=== PATIENT | female | born 1985 | race Caucasian/White ===

== ENCOUNTER 2021-08-28 05:32 | Outpatient (CLI) | payer BC ==
[~2021-08-28] VITALS: Ht 157.5 cm; Wt 109.5 kg
[2021-08-28] MEDS ORDERED: FEXO180T84 PO (10:20)
[2021-08-28] MEDS ORDERED: RT-ALBUINH IH (10:20)
[2021-08-28] MEDS ORDERED: CHOL-34 PO (10:20)
[2021-08-28] MEDS ORDERED: VITA1TAB17 PO (10:20)
== END 2021-08-28 10:27 | disposition home or self-care (01) ==
LOC: PREOP 05:32
PROVIDERS: ATTEND Obstetrics & Gynecology
DX: Z01.818 Encounter for other preprocedural examination (principal)

== ENCOUNTER 2021-09-04 07:03 | Day surgery (SDC) | payer BC ==
[2021-09-04] VITALS (10 sets, daily range): BP systolic 108–122; BP diastolic 61–87
[~2021-09-04] VITALS: Ht 157.5 cm; Wt 109.5 kg
[~2021-09-04 07:03] MED LIST: CHOL-34 PO; FEXO180T84 PO; RT-ALBUINH IH; VITA1TAB17 PO
[2021-09-04] MEDS ORDERED: ceFAZolin 2 GM IV Premixed 50 ML IV ONE (07:15)
[2021-09-04 07:24] LABS: CLARITY,URINE SL CLOUDY; COLOR,URINE YELLOW; GLUCOSE, URINE (UA) NEGATIVE (NEGATIVE); KETONES,URINE 1+ (NEGATIVE); LEUKOCYTE ESTERASE ,URINE NEGATIVE (NEGATIVE); NITRITE,URINE NEGATIVE (NEGATIVE); PROTEIN,URINE TRACE (NEGATIVE)
[2021-09-04] MEDS ORDERED: BUPIVACAINE 0.25% 30 ML (SENSORCAINE) VIAL ONE (07:26)
[2021-09-04 07:35] LABS: BACTERIA,URINE MODERATE /HPF; BILIRUBIN,URINE 1+ (NEGATIVE); RBC,URINE RARE /HPF
[2021-09-04] MEDS ORDERED: SCOPOLAMINE 1.5 MG (TRANSDERM-SCOP) PATCH ONE (07:40)
[2021-09-04] MEDS ORDERED: ONDANSETRON 4 MG/2 ML (SDV) Z0FRAN ONE ×3 (07:40→10:20)
[2021-09-04] MEDS ORDERED: FAMOTIDINE 20MG/2ML IV (PEPCID) ONE (07:40)
[2021-09-04] MEDS ORDERED: NEOSTIGMINE 3 MG/3 ML VIAL ONE (07:43)
[2021-09-04] MEDS ORDERED: ROCURONIUM 50 MG/5 ML (ZEMURON) VIAL IV ONE (07:43)
[2021-09-04] MEDS ORDERED: MIDAZOLAM 2 MG/2 ML (VERSED) VIAL ONE (07:43)
[2021-09-04] MEDS ORDERED: LIDOCAINE PF 2% 5 ML (XYLOCAINE) VIAL ONE (07:43)
[2021-09-04] MEDS ORDERED: fentaNYL INJ 100 MCG/2 ML AMP ONE (07:43)
[2021-09-04] MEDS ORDERED: GLYCOPYRROLATE 0.2 MG/ML (ROBINUL) 2 ML VIAL ONE (07:43)
[2021-09-04] MEDS ORDERED: proPOfol 200 MG/20 ML (DIPRIVAN) VIAL IV ONE (07:43)
--- NOTE | 2021-09-04 07:44 | Progress Note-Pre Operative ---
Pre-Operative Progress Note H&P Reviewed The H&P was reviewed, patient examined and no changes noted. Date Seen by Provider: Sep 04, 2021 Time Seen by Provider: 07:30 Date H&P Reviewed: Sep 04, 2021 Time H&P Reviewed: 07:30 Pre-Operative Diagnosis: cervical dysplasia TIKI PARKER DO Sep 04, 2021 07:44
[2021-09-04] MEDS ORDERED: ONDANSETRON 4 MG/2 ML (SDV) Z0FRAN IV ONE (07:45)
[2021-09-04] MEDS ORDERED: FAMOTIDINE 20MG/2ML IV (PEPCID) IV ONE (07:45)
[2021-09-04] MEDS ORDERED: SCOPOLAMINE 1.5 MG (TRANSDERM-SCOP) PATCH TOP ONE (07:45)
[2021-09-04] MEDS: LACTATED RINGERS 1,000 ML IV PRN ×2 (07:56→08:55)
[2021-09-04 08:01] LABS: BASOPHILS % (AUTO) 1 % (0-10); EOSINOPHILS # (AUTO) 0.1 10^3/uL (0.0-0.3); EOSINOPHILS % (AUTO) 1 % (0-10); HEMATOCRIT 44 % (35-52); HEMOGLOBIN 14.4 g/dL (11.5-16.0); LYMPHOCYTES % (AUTO) 25 % (12-44); MEAN CORPUSCULAR HEMOGLOBIN 28 pg (25-34); MEAN CORPUSCULAR HGB CONC 33 g/dL (32-36); MEAN CORPUSCULAR VOLUME 85 fL (80-99); MEAN PLATELET VOLUME 9.2 fL (9.0-12.2); MONOCYTES # (AUTO) 0.7 10^3/uL (0.0-1.0); MONOCYTES % (AUTO) 9 % (0-12); NEUTROPHILS # (AUTO) 5.1 10^3/uL (1.8-7.8); NEUTROPHILS % (AUTO) 64 % (42-75); PLATELET COUNT 313 10^3/uL (130-400); WHITE BLOOD COUNT 7.9 10^3/uL (4.3-11.0)
[2021-09-04] MEDS ORDERED: PNV1TABL47 PO (08:19)
[2021-09-04] MEDS ORDERED: FLUT9.9S NS (08:19)
[2021-09-04] MEDS ORDERED: PHENYLEPHRINE 100 MCG/ML 10 ML (ANESTHESIA) SYR ONE (09:19)
[2021-09-04] MEDS ORDERED: SEVOFLURANE (ULTANE) 15 ML INHAL SOLN ONE (10:07)
--- NOTE | 2021-09-04 10:12 | Operative Report ---
Operative Report Date of Procedure/Surgery Sep 04, 2021 Surgeon (s) TIKI PARKER DO Service Sprinkler Helper (s): NA Post-Operative Diagnosis cervical dysplasia paratubal adhesions Procedure Performed RaTH, bilateral salpingectomy, lysis of adhesions Description of Procedure Anesthesia Type: General Estimated blood loss (mL): minimal Specimen(s) collected/removed uterus, tubes and ovaries Description of the Procedure After informed consent was obtained, patient was taken into the operating room where general anesthetic was found to be adequate. She was prepped and draped in the usual sterile fashion in the dorsal lithotomy position. A Casillas catheter was placed. A speculum was placed in the vagina. The cervix was visualized and the anterior lip was grasped with a sharp toothed tenaculum. The uterus was sounded to a depth was approximately 8 centimeters. I placed the Belem device (8 cm) and a 3.0 cm collar was advanced over the cervix. I inserted the Belem without difficulty, inflating the balloon and securing it around the fornix of the cervix. The collar was then secured with sutures at 12 o'clock. Attention was then turned to the patient's abdomen. The skin was injected with 0.1% lidocaine with epinephrine. A supraumbilical incision was made about 8 mm in length. A Veress needle was inserted and I confirmed intraabdominal placement with a drop in pressure and the saline drop test. The opening pressure was 6 mmHg. I then insufflated the abdomen to a maximum of 15 mmHg with warmed CO2 gas. I placed an additional 8 mm trocar in the left abdomen lateral to the umbilicus approximately 15 cm lateral. The second and third robotic port was placed about 12 cm lateral to the right and left of the umbilical placement. 0.1% lidocaine with epinephrine was injected prior to placement of all trocars. These were 8 mm trocars. These were placed under direct visualization of the laparoscope. When all placements were confirmed, the patient was placed in steep Trendelenburg allowing adequate visualization. The robot was brought in for docking. The docking was accomplished without difficulty. It was determined that the procedure could be done robotically. I then took over the command of the robot utilizing the synchroseal and monopolar jose. I visualized the round ligaments bilaterally and grasped them and cauterized with bipolar cautery and then cut with my jose. There were adhesions of the left tube and ovary and the left side wall and these were taken down with the jose before I could visualize the tube adequately enough to perform the salpingectomy. At this point, I then did bilateral salpingectomy. I incised the mesosalpinx with the jose. I then grasped the uterine ovarian ligaments bilaterally with the synchroseal and then excised with the monopolar jose. I then moved my dissection to the posterior leaves of the broad ligament. I dissected the posterior leaves of the broad ligament off the uterine arteries skeletonizing them bilaterally. I then took a second clamp with the synchroseal and with the jose, transected the vessels away from the lateral aspect to the cervical stroma. I dissected the anterior peritoneum off the lower uterine segment. I continually pushed the bladder back and I took excessively great care and I was eventually able to dissect the vesicouterine peritoneum off the lower uterine segment. I then dissected in a V fashion towards the midline between the uterosacral ligaments. This allowed me to skeletonize the uterine vessels bilaterally. The balloon on the BELEM was insufflated. This allowed me to see the BELEM circumferentially. I then performed a colpotomy anteriorly and then amputate with cervix away from the vaginal fornix. I then continued the colpotomy circumferentially. Once this was performed, the general office assistant removed the uterus through the vagina. The general office assistant then left a sponge in the vagina to maintain the pneumoperitoneum. . I then began closure of the vaginal cuff. I closed the apices of the vaginal cuff with 2-0 Vicryl V lock sutures with a colposuspension through the uterosac ral ligaments. This suspended the apices of the vaginal cuff. I extended this to the midline from both sides and overlapped the V lock sutures in the midline. Excellent closure is noted and hemostasis is achieved. All the needles were removed from the patient's abdomen. Now, the robotic instruments were removed and the robot was docked back to laparoscopy. The pelvis was irrigated. There was no active bleeding noted. Bilateral ureters were seen the entire time during the surgery and were peris talsing. There was no excessive bleeding noted. The trocars were removed under direct visualization. The laparoscopic sites were visualized and found to be hemostatic. The skin incisions were closed with 4-0 Monocryl in a subcuticular fashion and then with Skin Affix. Op sites were placed over the incision sites. The instruments were removed from the vagina and I noted there were no abrasions. Sponge, lap, needle and instrument counts correct times two. Patient was awakened and taken to recovery in a stable condition Findings of the Procedure slightly enlarged, boggy uterus tiny submucosal fibroids adhesions of ovary to tube on left and tube to sidewall Allergies and Home Medications Allergies Coded Allergies: acetaminophen (Verified Allergy, Unknown, Anaphylaxis, 08/28/21) aspirin (Verified Allergy, Unknown, Anaphylaxis, 08/28/21) bupropion (Verified Allergy, Unknown, "paranoid", 08/28/21) caffeine (Verified Allergy, Unknown, Anaphylaxis, 08/28/21) Patient Home Medication List Home Medication List Reviewed: Yes Acetaminophen (Acetaminophen) 500 Mg Tablet, 500 MG PO Q8H Prescribed by: TIKI PARKER on 09/04/21 1024 Cholecalciferol (Vitamin D3) (Vitamin D3) 25 Mcg Tablet, 25 MCG PO DAILY, (Re ported) Entered as Reported by: SHAE VALENTIN on 08/28/21 1020 Last Action: Last Taken Edited Fexofenadine HCl (Orquidea Allergy) 180 Mg Tablet, 180 MG PO DAILY, (Reported) Entered as Reported by: SHAE VALENTIN on 08/28/21 1020 Last Action: Last Taken Edited Fluticasone Propionate (Flonase Allergy Relief) 9.9 Ml [place].susp, 1 SPRAY NS BID, (Reported) Entered as Reported by: IVONNE PAYAN on 09/04/21818 Last Action: Last Taken Edited Ibuprofen (Ibu) 600 Mg Tablet, 600 MG PO Q6HR Prescribed by: TIKI PARKER on 09/04/21 1024 Ondansetron (Ondansetron Odt) 4 Mg Tab.rapdis, 4 MG PO Q6H PRN for NAUSEA/VOMITING Prescribed by: TIKI PARKER on 09/04/21 1024 Oxycodone Hcl (Oxyir Tablet) 5 Mg Tab, 5 MG PO Q6H PRN for PAIN-SEE DOSE INSTRUCTIONS Prescribed by: JANAE URENA on 09/04/21 1642 Pnv with Ca,No.74/Iron/FA ( Low Iron Tablet) 1 Each Tablet, 1 EACH PO DAILY, (Reported) Entered as Reported by: IVONNE PAYAN on 09/04/21818 Last Action: Last Taken Edited Vitamin B Complex (Vitamin B Complex) 1 Each Tablet, 1 EACH PO DAILY, (Reported) Entered as Reported by: SHAE VALENTIN on 08/28/21 102 Last Action: Last Taken Edited Discontinued Medications Albuterol Sulfate (Proair Hfa) 1 Puff Puff, 2 PUFF IH Q4H PRN for WHEEZING, (Reported) Discontinued Reason: No Longer Taking Entered as Reported by: SHAE VALENTIN on 08/28/21 1020 Last Action: Discontinued TIKI PARKER DO Sep 04, 2021 10:12
[2021-09-04] MEDS ORDERED: ONDANSETRON 4 MG (ZOFRAN) ORAL DISSOLVE TAB PO PRN (10:15)
[2021-09-04] MEDS ORDERED: NALOXONE 0.4 MG/ML 1 ML (NARCAN) VIAL IV PRN (10:15)
[2021-09-04] MEDS ORDERED: CHLORASEPTIC LOZENGE MM PRN (10:15)
[2021-09-04] MEDS ORDERED: morphine INJ 4 MG/ML 1 ML (VIAL/SYRINGE) IV PRN (10:15)
[2021-09-04] MEDS ORDERED: LACTATED RINGERS 1,000 ML IV SCH (10:15)
[2021-09-04] MEDS ORDERED: morphine INJ 10 MG/ML 1ML (SYR OR VIAL) ONE (10:19)
[2021-09-04] MEDS ORDERED: HYDROmorphone 2 MG/ML VIAL (DILAUDID) ONE (10:20)
[2021-09-04] MEDS ORDERED: OXC5T PO ×2 (10:24→16:42)
[2021-09-04] MEDS ORDERED: ONDA4TAB11 PO (10:24)
[2021-09-04] MEDS ORDERED: IBUP-844 PO (10:24)
[2021-09-04] MEDS ORDERED: ACET-93 PO (10:24)
[2021-09-04] MEDS ORDERED: KETOROLAC 30 MG/ML VIAL ONE (10:27)
--- NOTE | 2021-09-04 10:27 | Discharge Inst-Women's Service ---
Discharge Inst-Women's Serv Depart Medication/Instructions New, Converted or Re-Newed RX: Transmitted to Pharmacy Instructions nothing in the vagina until cleared by physician no lifting over 25 lbs no driving for 1 week Final Diagnosis cervical dysplasia uterine fibroids enteropelvic adhesions Problems Reviewed?: Yes Consults/Follow Up Additional Follow Up: Yes (1 week for incision check and 8 week for post operative exam) Activity Activity: Activity as Tolerated Driving Instructions: No Driving for 1 Week NO SMOKING: NO SMOKING Nothing Inside Vagina: No Douching, No [place], No Tampons Diet Discharge Diet: No Restrictions Symptoms to Report to : Swelling Increased, Bleeding Excessive, Pain Increased, Fever Over 101 Degrees F, Vaginal Bleeding Increase, Cramps in Feet or Legs, Vaginal Discharge Foul For Any Problems or Questions: Contact Your Physician Skin/Wound Care Infection Signs and Symptoms: Increased Redness, Foul Odor of Wound, Increased Drainage, Skin Itchy or Has a Rash, Increased Swelling, Temperature Above 101 F Operative Area Clean and Dry: You May Remove Bandage (in 3 days, or if wet or soiled) Stitches/[place]/Dermabond: Dermabond Bathing Instructions: TIKI Anaya DO Sep 04, 2021 10:27
[2021-09-04] MEDS: KETOROLAC 30 MG/ML VIAL IV SCH ×2 (10:29→16:53)
[2021-09-04] MEDS ORDERED: PROMETHAZINE INJ 25 MG/ML (PHENERGAN) AMP IVP ONE (10:30)
[2021-09-04] MEDS ORDERED: MEPERIDINE (DEMEROL) INJ 50 MG/ML IVP ONE (10:30)
[2021-09-04] MEDS ORDERED: HYDROmorphone 2 MG/ML VIAL (DILAUDID) IV ONE (10:30)
[2021-09-04] MEDS ORDERED: ONDANSETRON 4 MG/2 ML (SDV) Z0FRAN IVP PRN (10:30)
[2021-09-04] MEDS ORDERED: morphine INJ 10 MG/ML 1ML (SYR OR VIAL) IVP ONE (10:30)
[2021-09-04] MEDS ORDERED: ACETAMINOPHEN 500 MG TAB (TYLENOL) PO SCH (13:00)
--- NOTE | 2021-09-05 09:21 | Anesthesia-General Post-Op ---
General Patient Condition Mental Status/LOC: Same as Preop Cardiovascular: Satisfactory Nausea/Vomiting: Absent Respiratory: Satisfactory Pain: Controlled Complications: Absent Post Op Complications Complications None Follow Up Care/Instructions Patient Instructions None needed. Anesthesia/Patient Condition Patient Condition Patient is doing well, no complaints, stable vital signs, no apparent adverse anesthesia problems. No complications reported per nursing. SHERLYN PORTER CRNA Sep 05, 2021 09:21
[2021-09-05] MEDS ORDERED: IBUPROFEN 600 MG (MOTRIN) TAB PO SCH (12:00)
== END 2021-09-04 17:18 | disposition home or self-care (01) ==
LOC: SDC 07:03 → WS 11:20 → SDC 17:18
PROVIDERS: ATTEND Obstetrics & Gynecology
DX: D25.2 Subserosal leiomyoma of uterus (principal); D06.7 Carcinoma in situ of other parts of cervix; K66.0 Peritoneal adhesions (postprocedural) (postinfection); N88.8 Other specified noninflammatory disorders of cervix uteri; N83.8 Other noninflammatory disorders of ovary, fallopian tube and broad ligament; E66.01 Morbid (severe) obesity due to excess calories; J40 Bronchitis, not specified as acute or chronic; Z87.891 Personal history of nicotine dependence; Z79.899 Other long term (current) drug therapy; Z68.41 Body mass index [BMI] 40.0-44.9, adult
CPT/HCPCS: 36415; 81000; 84703; 85025; 86850; 86900; 86901; 87081; 87088; 88309; 94664